=== PATIENT | female | born 1975 | race Caucasian/White ===

== ENCOUNTER 2020-05-26 10:13 | Inpatient (IN) | payer OTHER ==
[2020-05-26] MEDS ORDERED: FAMOTIDINE 10 MG TABLET PO ONE (11:01)
[2020-05-26] MEDS ORDERED: FAMOTIDINE 20 MG TABLET ONE (11:10)
[2020-05-26 11:26] LABS: MEAN PLT VOLUME 8.5 fl (7.5-11.1)
[2020-05-26 11:28] LABS: HEMATOCRIT 38.7 % (32.4-45.2); HEMOGLOBIN 12.3 GM/dl (10.7-15.3); MCH 25.3 pg (25.7-33.7); MCHC 31.7 g/dl (32.0-36.0); MEAN CELL VOLUME 79.5 fl (80-96); PLATELET COUNT 194 K/MM3 (134-434); RBC 4.86 M/mm3 (3.60-5.2); RDW 15.4 % (11.6-15.6); WHITE BLOOD COUNT 2.3 K/mm3 (4.0-10.8)
[2020-05-26 11:30] LABS: ACTIVATED PTT 28.4 SECONDS (25.2-36.5); INR 1.17 (0.82-1.09)
[2020-05-26 11:33] LABS: ALBUMIN 4.1 g/dl (3.4-5.0); BILIRUBIN,TOTAL 0.7 mg/dl (0.2-1); CALCIUM 8.9 mg/dl (8.5-10); CREATININE 0.6 mg/dl (0.55-1.3); POTASSIUM 3.3 mmol/L (3.5-5.1); TOT PROT 6.6 g/dl (6.4-8.2)
[2020-05-26 11:59] LABS: PLATELET ESTIMATE ADEQUATE
[2020-05-26] MEDS ORDERED: POTASSIUM CHLORIDE TABS 10 MEQ TABLET.ER (FP) PO ONE (12:54)
[2020-05-26] MEDS ORDERED: POTASSIUM CHLORIDE TABS 20 MEQ TABLET.ER (FP) PO ONE (12:58)
[2020-05-26] MEDS ORDERED: DEXAMETHASONE SOD PHOSPHATE 4 MG/1 ML VIAL IVPUSH ONE (13:35)
[2020-05-26] MEDS ORDERED: DEXAMETHASONE SOD PHOSPHATE 10 MG/1 ML VIAL ONE (14:42)
[2020-05-26] MEDS ORDERED: ONDANSETRON 4 MG/2 ML VIAL IVPUSH ONE (14:49)
[2020-05-26] MEDS ORDERED: HEPARIN NA (PORCINE) 5,000 UNITS/ML 1ML VIAL SQ SCH (18:00)
[2020-05-26] MEDS: HEPARIN NA (PORCINE) 5,000 UNITS/ML 1ML VIAL SQ SCH (22:34)
[2020-05-27 03:25] VITALS: BMI 31.1
[2020-05-27] MEDS: HEPARIN NA (PORCINE) 5,000 UNITS/ML 1ML VIAL SQ SCH (06:07)
[2020-05-27 07:45] LABS: BILIRUBIN,TOTAL 0.6 mg/dL (0.2-1); SGOT/AST 12 U/L (15-37); SGPT/ALT 15 U/L (13-61); TOT PROT 6.4 g/dl (6.4-8.2)
[2020-05-27 07:46] LABS: ALK PHOS 51 U/L (45-117)
[2020-05-27 08:01] LABS: ALBUMIN 3.4 g/dl (3.4-5.0); ANION GAP 8 MMOL/L (8-16); BLOOD UREA NITROGEN 8.4 mg/dL (7-18); CALCIUM 8.6 mg/dL (8.5-10.1); CHLORIDE 108 mmol/L (98-107); CO2 26 mmol/L (21-32); CREATININE 0.5 mg/dL (0.55-1.3); GLUCOSE,RANDOM 96 mg/dL (74-106); MAGNESIUM 1.9 mg/dL (1.8-2.4); POTASSIUM 3.5 mmol/L (3.5-5.1); SODIUM 141 mmol/L (136-145)
[2020-05-27 08:16] LABS: BASO % 0.3 % (0-2.0); HEMATOCRIT 37.3 % (32.4-45.2); LYMPH % 27.4 % (8-40); MCH 24.8 pg (25.7-33.7); MCHC 32.2 g/dl (32.0-36.0); MEAN PLT VOLUME 8.7 fl (7.5-11.1); MONO % 8.1 % (3.8-10.2); NEUT % 64.2 % (42.8-82.8); PLATELET COUNT 175 K/MM3 (134-434); RBC 4.84 M/mm3 (3.60-5.2); RDW 16.4 % (11.6-15.6); WHITE BLOOD COUNT 3.1 K/mm3 (4.0-10.0)
[2020-05-27] MEDS ORDERED: ALBUTEROL SO4 HFA INHALER IH PRN (08:20)
[2020-05-27 08:48] LABS: LDH 133 U/L (84-246)
[2020-05-27] MEDS: FLUoxetine HCL 20 MG CAPSULE PO SCH (09:45)
[2020-05-27] MEDS ORDERED: ASPIRIN 81 MG CHEWABLE TABLETS PO SCH (10:00)
[2020-05-27] MEDS ORDERED: FAMOTIDINE 20 MG TABLET PO SCH (10:00)
[2020-05-27] MEDS: ENOXAPARIN NA (PORCINE) 40 MG/0.4 ML DISP.SYRIN SQ SCH (13:46)
[2020-05-27] MEDS ORDERED: LORazepam 1 MG TABLET PO ONE (14:02)
[2020-05-27] MEDS: FERROUS SO4 325 MG TABLET (FP) PO SCH (17:53)
[2020-05-27] MEDS ORDERED: CALCIUM CARBONATE 650 MG TABLET PO ONE (20:43)
[2020-05-27] MEDS: FAMOTIDINE 20 MG TABLET PO SCH (22:50)
[2020-05-27] MEDS: DOCUSATE SODIUM 100 MG CAPSULE (FP) PO SCH (22:51)
[2020-05-27] MEDS ORDERED: MELATONIN 5 MG TABLETS PO ONE (23:10)
[2020-05-28] MEDS ORDERED: ACETAMINOPHEN 1000 MG/100 ML VIAL (NON FORMULARY) IVPB ONE (00:52)
[2020-05-28] MEDS ORDERED: ACETAMINOPHEN 325 MG TABLET (FP) PO ONE (01:03)
[2020-05-28] MEDS ORDERED: LORazepam 1 MG TABLET PO ONE (07:53)
[2020-05-28 08:43] LABS: BASO % 0.8 % (0-2.0); EOS % 0.2 % (0-4.5); HEMATOCRIT 40.6 % (32.4-45.2); HEMOGLOBIN 12.7 GM/dL (10.7-15.3); LYMPH % 49.8 % (8-40); MCH 24.4 pg (25.7-33.7); MCHC 31.4 g/dl (32.0-36.0); MEAN CELL VOLUME 77.8 fl (80-96); MEAN PLT VOLUME 8.3 fl (7.5-11.1); MONO % 6.7 % (3.8-10.2); NEUT % 42.5 % (42.8-82.8); PLATELET COUNT 194 K/MM3 (134-434); RBC 5.22 M/mm3 (3.60-5.2); RDW 17.1 % (11.6-15.6); WHITE BLOOD COUNT 3.8 K/mm3 (4.0-10.0)
[2020-05-28] MEDS: ENOXAPARIN NA (PORCINE) 40 MG/0.4 ML DISP.SYRIN SQ SCH (10:11)
[2020-05-28] MEDS: FERROUS SO4 325 MG TABLET (FP) PO SCH ×3 (10:11→17:32)
[2020-05-28] MEDS: FLUoxetine HCL 20 MG CAPSULE PO SCH (10:11)
[2020-05-28] MEDS: FAMOTIDINE 20 MG TABLET PO SCH ×2 (10:11→21:59)
[2020-05-28] MEDS: DOCUSATE SODIUM 100 MG CAPSULE (FP) PO SCH ×3 (10:11→22:01)
[2020-05-28] MEDS ORDERED: ATORVASTATIN CA 20 MG TABLET (FP) PO SCH (22:00)
[2020-05-28] MEDS ORDERED: MELATONIN 5 MG TABLETS PO ONE (22:54)
[2020-05-29 08:34] LABS: BASO % 0.3 % (0-2.0); EOS % 0.5 % (0-4.5); HEMATOCRIT 37.1 % (32.4-45.2); HEMOGLOBIN 12.1 GM/dL (10.7-15.3); LYMPH % 35.9 % (8-40); MCH 25.5 pg (25.7-33.7); MCHC 32.7 g/dl (32.0-36.0); MEAN CELL VOLUME 78.1 fl (80-96); MEAN PLT VOLUME 9.1 fl (7.5-11.1); MONO % 6.1 % (3.8-10.2); NEUT % 57.2 % (42.8-82.8); PLATELET COUNT 192 K/MM3 (134-434); RBC 4.75 M/mm3 (3.60-5.2); RDW 16.9 % (11.6-15.6); WHITE BLOOD COUNT 4.1 K/mm3 (4.0-10.0)
[2020-05-29 08:49] LABS: CHLORIDE 106 mmol/L (98-107); POTASSIUM 3.5 mmol/L (3.5-5.1); SODIUM 140 mmol/L (136-145)
[2020-05-29 08:54] LABS: ALBUMIN 3.4 g/dl (3.4-5.0); ANION GAP 6 MMOL/L (8-16); BLOOD UREA NITROGEN 10.3 mg/dL (7-18); CALCIUM 8.8 mg/dL (8.5-10.1); CO2 29 mmol/L (21-32); GLUCOSE,RANDOM 80 mg/dL (74-106); MAGNESIUM 1.9 mg/dL (1.8-2.4)
[2020-05-29 08:57] LABS: SGOT/AST 16 U/L (15-37); SGPT/ALT 17 U/L (13-61)
[2020-05-29 08:59] LABS: BILIRUBIN,TOTAL 0.8 mg/dL (0.2-1); TOT PROT 6.1 g/dl (6.4-8.2)
[2020-05-29 09:00] LABS: ALK PHOS 46 U/L (45-117); CREATININE 0.5 mg/dL (0.55-1.3); PHOSPHOROUS 3.1 mg/dL (2.5-4.9)
[2020-05-29] MEDS ORDERED: POTASSIUM CHLORIDE TABS 20 MEQ TABLET.ER (FP) PO ONE (09:15)
[2020-05-29] MEDS: FERROUS SO4 325 MG TABLET (FP) PO SCH ×3 (09:33→16:34)
[2020-05-29] MEDS: FLUoxetine HCL 20 MG CAPSULE PO SCH (09:33)
[2020-05-29] MEDS: DOCUSATE SODIUM 100 MG CAPSULE (FP) PO SCH (09:33)
[2020-05-29] MEDS: FAMOTIDINE 20 MG TABLET PO SCH (09:33)
[2020-05-29] MEDS ORDERED: ENOXAPARIN NA (PORCINE) 40 MG/0.4 ML DISP.SYRIN SQ SCH (10:00)
[2020-05-29] MEDS ORDERED: ASPIRIN COATED 81 MG TABLET.EC PO SCH (10:00)
[2020-05-29 14:51] VITALS: BP 136/70; PULSE 75; TEMP 98.2
[2020-05-29] MEDS ORDERED: MELATONIN 5 MG TABLETS PO PRN (22:00)
== END 2020-05-29 19:14 | disposition home or self-care (01) | DRG 137 ==
LOC: FER 10:13 → J4W 19:00
PROVIDERS: ADMIT Hospitalist; ATTEND Internal Medicine
DX: U07.1 COVID-19 (principal); E11.9 Type 2 diabetes mellitus without complications; I10 Essential (primary) hypertension; K21.9 Gastro-esophageal reflux disease without esophagitis; M79.7 Fibromyalgia; D17.9 Benign lipomatous neoplasm, unspecified; E87.6 Hypokalemia; J45.909 Unspecified asthma, uncomplicated; G45.9 Transient cerebral ischemic attack, unspecified; D50.9 Iron deficiency anemia, unspecified; E66.9 Obesity, unspecified; Z68.31 Body mass index [BMI] 31.0-31.9, adult; F32.9 Major depressive disorder, single episode, unspecified; Z98.84 Bariatric surgery status
CPT/HCPCS: 36415; 70551-TC; 71045-TC-FY; 80053; 82550; 82728; 83615; 83735; 84100; 84484; 85025; 85379; 85610; 85730; 86140; 93005; 93010; 93970-TC; 93971-TC; 99285-25; J1644

== ENCOUNTER 2020-10-21 19:21 | Emergency (ER) | payer OTHER ==
[2020-10-21 19:38] VITALS: BP 131/57; PULSE 61; TEMP 98.1; BMI 30.7
[2020-10-21] MEDS ORDERED: KETOROLAC TROMETHAMINE 60 MG/2 ML VIAL IM ONE (19:59)
[2020-10-21] MEDS ORDERED: KETOROLAC TROMETHAMINE 60 MG/2 ML VIAL ONE (20:02)
[2020-10-21] MEDS ORDERED: CYCLOBENZAPRINE HCL 10 MG TABLET (FP) PO ONE (21:09)
[2020-10-21] MEDS ORDERED: CYCLOBENZAPRINE HCL 10 MG TABLET (FP) ONE (21:09)
== END 2020-10-21 21:20 | disposition home or self-care (01) ==
LOC: FER 19:21
PROC: 3E0233Z Introduction of Anti-inflammatory into Muscle, Percutaneous Approach (ICD-10-PCS; principal; 2020-10-21)
DX: S86.911A Strain of unspecified muscle(s) and tendon(s) at lower leg level, right leg, initial encounter (principal)
CPT/HCPCS: 73562-TC-LT-FY; 99284-25

== ENCOUNTER 2020-11-29 04:20 | Day surgery (SDC) | payer OTHER ==
[2020-11-28 17:24] VITALS: BMI 31.1
[2020-11-29] MEDS ORDERED: MIDAZOLAM HCL 2 MG/2 ML SINGLE DOSE VIAL ONE (13:10)
[2020-11-29] MEDS ORDERED: PROPOFOL 20 ML ONE (13:10)
[2020-11-29] MEDS ORDERED: LIDOCAINE HCL 2% JELLY (5 ML/TUBE) ONE (13:11)
[2020-11-29] MEDS ORDERED: LIDOCAINE HCL/PF 2% SDV 5ML VIAL ONE (13:11)
[2020-11-29] MEDS ORDERED: KETOROLAC TROMETHAMINE 30 MG/1 ML VIAL ONE (13:11)
[2020-11-29] MEDS ORDERED: ceFAZolin 2 GRAM PREMIX BAG IVPB ONE (14:10)
[2020-11-29] MEDS ORDERED: ceFAZolin SODIUM 1 GM VIAL ONE (14:14)
[2020-11-29] MEDS ORDERED: IBUPROFEN 600 MG TABLET (FP) PO PRN (14:51)
[2020-11-29] MEDS ORDERED: oxyCODONE HCL 5 MG TABLET PO PRN (14:51)
[2020-11-29] MEDS ORDERED: IBUPROFEN 800 MG/8 ML IJ IVPB PRN (14:51)
[2020-11-29] MEDS ORDERED: ONDANSETRON 4 MG/2 ML VIAL IVPUSH PRN (14:51)
[2020-11-29] MEDS ORDERED: ELECTROLYTE-148 SOLN 1,000 ML IV SCH (15:00)
[2020-11-29] MEDS ORDERED: ACETAMINOPHEN INJECTION 100 ML IVPB ONE (15:02)
[2020-11-29] MEDS ORDERED: ACETAMINOPHEN 1000 MG/100 ML VIAL (NON FORMULARY) IVPB ONE ×2 (15:06→15:15)
[2020-11-29] MEDS ORDERED: ONDANSETRON 4 MG/2 ML VIAL ONE (17:20)
[2020-11-29 18:45] VITALS: BP 138/75; PULSE 60; TEMP 98
== END 2020-11-29 19:00 | disposition home or self-care (01) ==
LOC: JASU-SURG 04:20
PROVIDERS: ATTEND Obstetrics & Gynecology
PROC: 0U5B8ZZ Destruction of Endometrium, Via Natural or Artificial Opening Endoscopic (ICD-10-PCS; principal; 2020-11-29 14:00)
DX: N92.1 Excessive and frequent menstruation with irregular cycle (principal)
CPT/HCPCS: 94760; J0131

== ENCOUNTER 2022-03-16 20:55 | Emergency (ER) | payer OTHER ==
[2022-03-16 21:17] VITALS: BP 112/77; PULSE 78; RESP 16; TEMP 98.4; BMI 32.7
[2022-03-16] MEDS ORDERED: ACETAMINOPHEN 500 MG TABLET (FP) PO ONE (22:45)
[2022-03-16] MEDS ORDERED: ACETAMINOPHEN 500 MG TABLET (FP) ONE (22:58)
== END 2022-03-16 23:09 | disposition home or self-care (01) ==
LOC: FER 20:55
DX: R51.9 Headache, unspecified (principal); Z63.79 Other stressful life events affecting family and household
CPT/HCPCS: 82962; 99283-25

== ENCOUNTER 2022-10-20 19:20 | Emergency (ER) | payer OTHER ==
[2022-10-20 19:34] VITALS: BP 130/74; PULSE 79; RESP 18; TEMP 98.1; BMI 33.8
[2022-10-20] MEDS ORDERED: CEPHALEXIN MONOHYDRATE 500 MG CAPSULE (UD) PO ONE (19:59)
[2022-10-20] MEDS ORDERED: CEPHALEXIN MONOHYDRATE 500 MG CAPSULE (UD) ONE (20:08)
== END 2022-10-20 20:18 | disposition home or self-care (01) ==
LOC: FER 19:20
DX: L03.311 Cellulitis of abdominal wall (principal); T21.02XD Burn of unspecified degree of abdominal wall, subsequent encounter; X08.8XXD Exposure to other specified smoke, fire and flames, subsequent encounter
CPT/HCPCS: 82962; 99283-25

== ENCOUNTER 2022-11-01 14:45 | Emergency (ER) | payer OTHER ==
[2022-11-01] MEDS ORDERED: LIDOCAINE 5% TOPICAL PATCH TP ONE ×2 (14:58)
[2022-11-01] MEDS ORDERED: METHOCARBAMOL 500 MG TABLET PO ONE (14:58)
[2022-11-01] MEDS ORDERED: METHOCARBAMOL 500 MG TABLET ONE (15:00)
[2022-11-01] MEDS ORDERED: LIDOCAINE 5% TOPICAL PATCH ONE (15:00)
[2022-11-01 15:07] VITALS: BP 136/84; PULSE 98; RESP 18; TEMP 99; BMI 34.7
[2022-11-01] MEDS ORDERED: LIDOCAINE PATCH REMOVAL MC SCH ×2 (22:00)
== END 2022-11-01 15:20 | disposition home or self-care (01) ==
LOC: FER 14:45
DX: M25.512 Pain in left shoulder (principal); G44.209 Tension-type headache, unspecified, not intractable; M79.10 Myalgia, unspecified site; X50.0XXA Overexertion from strenuous movement or load, initial encounter; Y99.0 Civilian activity done for income or pay
CPT/HCPCS: 99283-25